=== PATIENT | female | born 1985 | race Caucasian/White ===

== ENCOUNTER 2018-07-30 14:08 | Inpatient (IN) | payer OTHER ==
[~2018-07-30] VITALS: Ht 152.4 cm; Wt 81.4 kg
[~2018-07-30 14:08] MED LIST: DID NOT BRING MEDS
[2018-07-30 14:18] VITALS: Ht 152.4 cm; Wt 81.4 kg
[2018-07-30 14:19] VITALS: BP 103/65; PULSE 85; RESP 18
[2018-07-30] MEDS ORDERED: PNV11TAB PO (14:21)
[2018-07-30] MEDS: LACTATED RINGER'S 1,000 ML IV SCH ×2 (14:54→23:00)
--- NOTE | 2018-07-30 16:52 | HP ---
Date/Time of Note Date/Time of Note DATE: 07/30/18 TIME: 16:48 OB - History Hx of Present Free Text/Dictation @34+wks GA with elevated liver enzymes ,Decreased movements and suspected cholestasis of : 3 Para: 2 Care: Good Care Ultrasounds: Normal mid trimester US Obstetrical Complications: None Medical Complications: None Past Family/Social History * Past Medical, Surgical, Family and Obstetric Histories reviewed from chart. OB Admission Exam Vital Signs Vital Signs Vital Signs Date Temp Pulse Resp B/P (MAP) Pulse Ox O2 O2 Flow FiO2 Time Delivery Rate 07/30/18 98.0 85 18 103/65 14:19 (78) Physical Exam Abdomen: WNL Extremities: Normal Cervical Dilatation: None Effacement: 0% Station: Ballotable Heart Rate: 140's Accelerations: Accelerations Present Decelerations: No Decelerations Varibility: Marked Contractions on Admission: >10 Minutes Apart Last 72 hours Lab Results CBC & BMP 07/30/18 14:52 Liver Function Test 07/30/18 14:52 Alanine Aminotransferase (ALT/SGPT) 121 H Albumin 3.4 Alkaline Phosphatase 187 H Aspartate Amino Transf (AST/SGOT) 95 H Direct Bilirubin 0.00 Total Protein 7.0 OB Assessment/Plan Reason for admission: observation Other Assessment: PMH Denies PSH Denies Plan: Expectant Management Other plan: 1.Perinatology consult 2.Observation 3.Repeat Labs tomorrow 4.Management as per her provider ROBERTO CARLOS FLAHERTY M.D. Jul 30, 2018 16:52
[2018-07-31] MEDS: URSODIOL 300 MG CAP PO SCH ×4 (01:06→22:25)
[2018-07-31] MEDS: LACTATED RINGER'S 1,000 ML IV SCH ×2 (07:39→15:57)
[2018-07-31] MEDS: PRENATAL VITAMIN PO SCH (09:04)
[2018-07-31] MEDS ORDERED: AMPICILLIN 2 GM/NS (PMX) 100 ML IVPB ONE ×2 (19:00→21:00)
--- NOTE | 2018-07-31 19:12 | QN ---
Documentation Comment progress note patient was seen and examined patient report her itching has improved since admission positive movement vs stable afebrile ab gravid nt extremity no edema no calf tenderness ve 1/50/-3 (positive cervical change) fhr cat 1 toco regular a/ iup at 34 wks ga, suspected cholestasis of , ptl was treated for syphillis in the current currently rpr 1:2 p transfer patient to labor and delivery gbs prophylaxis steriod treatment nicu consult perinatalogy consult SEDRICK FLOWERS MD Jul 31, 2018 19:12
--- NOTE | 2018-07-31 19:29 | CONS ---
DATE OF ADMISSION: 07/30/2018 DATE OF CONSULTATION: 07/31/2018 The patient is currently 34 weeks and 2 days, presented for evaluation for cholestasis. BARD panel h as been ordered; they are pending, and liver function tests; the report is that they are slightly chavez vated. She is currently on Actigall every 8 hours. My recommendations are that Actigall 300 mg every 8 hours should be continued. Also, antipyretic age nts if needed should be prescribed. Continuous monitoring while the patient is here. Cholesta sis does not necessitate in-house management. However, the patient is having every 7 to 8 minutes co ntractions. Please re-evaluate the patient for labor and if necessary, meaning if she is dil ated, then I would recommend magnesium sulfate. If she is not dilated and cervical length is appropr iate, then at least magnesium sulfate would be helpful. If further questions, please contact me. In the absence of evidence of labor, the patient can be discharged home with testin g twice weekly with delivery at 37 weeks. However, if the LFTs continued to elevate, then 36 weeks d elivery can be considered. Weekly liver function tests are recommended. Dictated By: JASON RASHID MD ST/ANTWAN Conf#: [id number] DID#: [id number] CC: JUAN F VILLARREAL MD; SEDRICK FLOWERS MD;*End*
[2018-07-31] MEDS: BETAMET NA PHOS/AC(6 MG/ML) 2 ML INJ SYG IM SCH (20:27)
[2018-08-01] MEDS: LACTATED RINGER'S 1,000 ML IV SCH ×3 (01:06→18:19)
[2018-08-01] MEDS: AMPICILLIN 1 GM/NS (PMX) 50 ML IVPB SCH ×2 (01:06→05:03)
[2018-08-01] MEDS: URSODIOL 300 MG CAP PO SCH ×3 (06:07→21:00)
[2018-08-01] MEDS: PRENATAL VITAMIN PO SCH (09:06)
--- NOTE | 2018-08-01 20:18 | QN ---
Documentation Comment progress note patient was seen and examined patient has no itching positive movement vs stable afebrile ab gravid nt extremity no edema no calf tenderness ve 1/50/-3 (no cervical change) fhr cat 1 toco occasional a/ iup at 34 wks ga, suspected cholestasis of , tptl was treated for syphillis in the current currently rpr 1:2 p discharge home today f/u with primary ob tomorrow nst/bpp 2x weekly SEDRICK FLOWERS MD Aug 01, 2018 20:18
--- NOTE | 2018-08-01 20:22 | PD.PPDC ---
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
[2018-08-01] MEDS: BETAMET NA PHOS/AC(6 MG/ML) 2 ML INJ SYG IM SCH (21:01)
--- NOTE | 2018-08-02 01:47 | DS ---
DATE OF ADMISSION: 07/30/2018 DATE OF DISCHARGE: 08/01/2018 PRIMARY DIAGNOSIS: Intrauterine at 34 weeks gestational age with elevated liver enzymes, suspected cholestasis of . Threatened pre-term labor with a history of syphilis and treated in the present , undelivered. PROCEDURE: None. CONDITION ON DISCHARGE: Stable. ACTIVITY: As tolerated. DIET: Regular. MEDICATIONS ON DISCHARGE: Actigall 300 mg p.o. t.i.d. DISCHARGE SUMMARY: Ms. Carmelita Trotter was admitted on 07/30/2018 secondary to complaining of generalized itching. Her liver enzymes were observed to be elevated. She was given Actigall for suspected cholestasis of and given steroid treatment for lung maturity. She had a history of syphilis in the present , which are RPR and is currently 1; 2. The patient reports she was treated already in the present . She will be discharged home today and follow up in [facility] clinic twice weekly, followed by weekly liver enzyme test. Bile acids are currently pending, she will follow up in the clinic with her primary OB and further evaluation and treatment as recommended by her primary OB. Dictated By: SEDRICK JAVIER/ANTWAN Conf#: [id number] DID#: [id number] MTDCiera
== END 2018-08-01 22:00 | disposition home or self-care (01) | DRG 831 ==
LOC: OBT 14:08 → L-D 14:08 → OBT 16:30 → PP1 07-31 00:39 → L-D 07-31 23:53
PROVIDERS: ADMIT Obstetrics & Gynecology; ATTEND Obstetrics & Gynecology
DX: O26.613 Liver and biliary tract disorders in pregnancy, third trimester (principal); K83.1 Obstruction of bile duct; O36.8130 Decreased fetal movements, third trimester, not applicable or unspecified; Z3A.34 34 weeks gestation of pregnancy
CPT/HCPCS: 76818; 80053; 81003; 83789; 84560; 85025; 85384; 85610; 85730; 86592; 86703; 86803; 87081; G0463; J0290; J0702; J7120

== ENCOUNTER 2018-08-07 12:07 | Inpatient (IN) | payer OTHER ==
[~2018-08-07] VITALS: Ht 154.9 cm; Wt 82.6 kg
[~2018-08-07 12:07] MED LIST changes: -DID NOT BRING MEDS; +PNV11TAB PO
[2018-08-07] MEDS ORDERED: LACTATED RINGER'S 1,000 ML IV PRN (12:26)
[2018-08-07] MEDS ORDERED: IBUPROFEN 600 MG TAB PO PRN (12:30)
[2018-08-07] MEDS ORDERED: CARBOPROST 250 MCG INJ IM PRN (12:30)
[2018-08-07] MEDS ORDERED: OXYTOCIN 30 UNITS/LR 500 ML IV PRN (12:30)
[2018-08-07] MEDS ORDERED: METHYLERGONOVINE 0.2 MG INJ IM PRN (12:30)
[2018-08-07] MEDS ORDERED: BUTORPHANOL 2 MG INJ IV PRN ×2 (12:30)
[2018-08-07] MEDS ORDERED: MISOPROSTOL 200 MCG TAB PR PRN (12:30)
[2018-08-07] MEDS ORDERED: LIDOCAINE 1% (MPF) 30 ML INJ INJ PRN (12:30)
[2018-08-07] MEDS ORDERED: OXYTOCIN 30 UNITS/LR 500 ML IV SCH ×2 (12:30)
[2018-08-07 12:31] VITALS: Ht 154.9 cm; Wt 82.6 kg
[2018-08-07 13:13] VITALS: BP 104/62; PULSE 93; RESP 20
[2018-08-07] MEDS: LACTATED RINGER'S 1,000 ML IV SCH ×2 (13:22→20:02)
[2018-08-07] MEDS: MISOPROSTOL 50 MCG CAPSULE PO SCH ×2 (14:25→20:05)
--- NOTE | 2018-08-07 18:45 | PREOPHP ---
DATE OF ADMISSION: 08/07/2018 HISTORY OF PRESENT ILLNESS: Ms. Carmelita Trotter is a 32-year-old 3, para 2, EDC 08/26/2018 intr auterine at 37 weeks and 2 days gestational age, was sent from Dr. Manuel's office for d elivery secondary to cholestasis of with bile acid of approximately 18. She has a signific ant history of syphilis in the present and gonorrhea, which was both treated with antibioti cs. Her current RPR titer is 1:2. She is currently on the Cytotec regimen for cervical ripening. O rders have been given for Pitocin when the Cytotec regimen is complete. She currently denies any con tractions, vaginal bleeding, or discharge. Her care took place with Dr. Manuel. PAST MEDICAL HISTORY: Cholestasis of . MEDICATIONS: 1. vitamins. 2. Actigall. PAST SURGICAL HISTORY: None. OBSTETRICAL HISTORY: x2 vaginal delivery. GYNECOLOGIC HISTORY: 12, regular 3 to 4 days. Denies any sexually transmitted disease. Sexually ac tive with 1 partner. SOCIAL HISTORY: Denies any smoking, drugs or alcohol. FAMILY HISTORY: None. REVIEW OF SYSTEMS: All within normal except history of present illness. PHYSICAL EXAMINATION: HEENT: Within normal. LUNGS: CTA bilateral. CARDIOVASCULAR: S1, S2, regular rhythm. ABDOMEN: Gravid, nontender. Negative CVA bilateral. EXTREMITIES: Negative. No calf tenderness. PELVIC: Vaginal exam: Fingertip short and closed. heart tracing category 1. Tocometer irreg ular contractions. ASSESSMENT: Intrauterine at 37 weeks and 2 days gestational age with cholestasis of pregna ncy, exposure to syphilis and gonorrhea in the current , which was treated. PLAN: Continue present management and pain medications as needed. Dictated By: SEDRICK JAVIER/ANTWAN Conf#: [id number] DID#: [id number]
[2018-08-08 00:30] VITALS: BP 105/65; PULSE 66; RESP 18
[2018-08-08] MEDS: MISOPROSTOL 50 MCG CAPSULE PO SCH (00:30)
[2018-08-08] MEDS: LACTATED RINGER'S 1,000 ML IV SCH ×2 (04:09→07:12)
--- NOTE | 2018-08-08 07:11 | PREAC ---
Date/Time of Note Date/Time of Note DATE: 08/08/18 TIME: 07:10 Anesthesia Eval and Record Evaluation Time Pre-Procedure Interview DATE: 08/08/18 TIME: 07:10 Age 32 Sex female NPO: 8 hrs Preoperative diagnosis Labor Pain Planned procedure Labor Epidural Past Medical History Past Medical History: Includes Heme: Anemia Infection(s): Other (Treated for Gonorrhea and Syphylis) : : (3), Para: (1), Gestational age: (37) Surgery & Anesthesia Issues No known issue Meds Anticoagulation: No Beta Humphrey within 24 hr: No Reason Beta Humphrey not given: Pt. not on B-Humphrey Reported Medications [id number] Tfnyxwze-EQ-SYP ( 19) 1 Each Tablet, 1 TAB PO DAILY, TAB 07/30/18 Discontinued Reported Medications [Did Not Bring Meds] No Conflict Check 09/02/10 Current Medications Lactated Ringer's 1,000 ml @ 125 mls/hr Q8H IV Last administered on 08/08/18at 04:09; Admin Dose 125 MLS/HR; Start 08/07/18 at 12:26 Butorphanol Tartrate (Stadol) 1 mg Q2H PRN IV .PAIN SCALE 1-5; Start 08/07/18 at 12:30 Butorphanol Tartrate (Stadol) 2 mg Q2H PRN IV .PAIN SCALE 6-10 Last administered on 08/08/18at 07:00; Admin Dose 2 MG; Start 08/07/18 at 12:30 Lidocaine (Xylocaine 1% (Mpf)) 30 ml ONCE PRN INJ .EPISIOTOMY; Start 08/07/18 at 12:30 Oxytocin/Lactated Ringer's 500 ml @ 500 mls/hr ONCE POST IV ; Start 08/07/18 at 12:30 Oxytocin/Lactated Ringer's 500 ml @ 125 mls/hr POST IV ; Start 08/07/18 at 12:30 Ibuprofen (Motrin) 600 mg ONCE PRN PO .PAIN 1-5; Start 08/07/18 at 12:30 Lactated Ringer's 1,000 ml @ 2,000 mls/hr Q30M PRN IV .ANESTHESIA; Start 08/07/18 at 12:26 Oxytocin/Lactated Ringer's 500 ml @ 0 mls/hr ONCE PRN IV .VAGINAL BLEEDING; Start 08/07/18 at 12:30 Methylergonovine Maleate (Methergine) 0.2 mg ONCE PRN IM .VAGINAL BLEEDING; Start 08/07/18 at 12:30 Carboprost Tromethamine (Hemabate) 250 mcg ONCE PRN IM .VAGINAL BLEEDING; Start 08/07/18 at 12:30 Misoprostol (Cytotec) 1,000 mcg ONCE PRN AL .VAGINAL BLEEDING; Start 08/07/18 at 12:30 Misoprostol (Cytotec 50 Mcg Capsule) 50 mcg Q4 PO Last administered on 08/08/18at 00:30; Admin Dose 50 MCG; Start 08/07/18 at 14:10 Meds reviewed: Yes Allergies Coded Allergies: No Known Drug Allergy (Verified Allergy, Unknown, 12/12/13) Allergies Reviewed: Yes Labs/Studies Labs Reviewed: Reviewed by anesthesiologist Result Diagram: 08/07/18 1320 08/07/18 1320 Laboratory Tests 08/07/18 13:20 Blood Bank Test 08/07/18 13:20 Antibody Screen NEGATIVE Blood Type O POSITIVE Rh Immune Globulin Candidate NO test: Positive Studies: ECG (n/a), CXR (n/a) Pre-procedure Exam Last vitals Vital Signs Date Temp Pulse Resp B/P (MAP) Pulse Ox O2 O2 Flow FiO2 Time Delivery Rate 08/07/18 98.4 93 20 104/62 Room Air 13:13 (76) Airway: Adequate mouth opening, Adequate thyromental dist Mallampati: Mallampati II Teeth: Normal Lung: Normal Heart: Normal ASA Physical Status ASA physical status: 2 Emergency: None Planned Anesthetic Neuraxial: Epidural Planned Pain Management Epidural Pre-operative Attestations Prior to commencing anesthesia and surgery, the patient was re-evaluated, there was verification of: *The patient's identity *The results of appropriate recent lab work and preoperative vital signs *The above evaluation not changing prior to induction *Anesthetic plan, risk benefits, alternative and complications discussed with patient/family; questions answered; patient/family understands, accepts and wishes to proceed. YRN TY MD Aug 08, 2018 07:11
[2018-08-08] MEDS ORDERED: FENTAnyl 2MCG/ML-ROPIV 0.2% 100 ML ONE (07:28)
--- NOTE | 2018-08-08 07:38 | PAC ---
Date/Time of Note Date/Time of Note DATE: 08/08/18 TIME: 07:38 Post-Anesthesia Notes Post-Anesthesia Note Last documented vital signs Vital Signs Date Temp Pulse Resp B/P (MAP) Pulse Ox O2 O2 Flow FiO2 Time Delivery Rate 08/08/18 98.4 93 20 104/62 Room Air 07:33 (76) Activity: WNL Respiratory function: WNL Cardiovascular function: WNL Mental status: Baseline Pain reasonably controlled: Yes Hydration appropriate: Yes Nausea/Vomiting absent: Yes YRN TY MD Aug 08, 2018 07:38
[2018-08-08] MEDS ORDERED: NALOXONE (0.4 MG/ML) INJ IV PRN (08:00)
[2018-08-08] MEDS ORDERED: FENTAnyl 2MCG/ML-ROPIV 0.2% 100 ML BAG EPI SCH (08:00)
[2018-08-08] MEDS ORDERED: OXYTOCIN 30 UNITS/LR 500 ML IV SCH (09:35)
--- NOTE | 2018-08-08 09:35 | LDN ---
Date/Time of Note Date/Time of Note DATE: 08/08/18 TIME: 09:34 Delivery Summary iup at 37 wks with cholestasis of Weeks of Gestation 37 Placenta Delivered: Spontaneously Meconium: none Episiotomy: No Estimated blood loss: 150 Sponge & Needle done & correct: Yes All needle counts correct: Yes Any foreign bodies felt in the: No Delivery Information Sex Infant Sex: male Apgars 1 Minute: 9 5 Minute: 9 Suctioning Nose & mouth suctioned at vianey: No Delee suction performed: No Umbilical Cord Umbilical cord with: 3 Vessels Cord presentations: no nuchal cord Cord Blood was obtained: Yes SEDRICK FLOWERS MD Aug 08, 2018 09:35
[2018-08-08] MEDS ORDERED: WITCH HAZEL/GLYCERIN PAD PR PRN (10:00)
[2018-08-08] MEDS ORDERED: OXYCODONE/ASPIRIN (4.88/325) TAB PO PRN ×2 (10:00)
[2018-08-08] MEDS ORDERED: ACETAMINOPHEN 325 MG TAB PO PRN (10:00)
[2018-08-08] MEDS ORDERED: ONDANSETRON 4 MG INJ IV PRN (10:00)
[2018-08-08] MEDS ORDERED: MISOPROSTOL 200 MCG TAB PR PRN (10:00)
[2018-08-08] MEDS ORDERED: CARBOPROST 250 MCG INJ IM PRN (10:00)
[2018-08-08] MEDS ORDERED: LANOLIN HPA 1 PKT TOP PRN (10:00)
[2018-08-08] MEDS ORDERED: OXYTOCIN 30 UNITS/LR 500 ML IV PRN (10:00)
[2018-08-08] MEDS ORDERED: NACL 0.9% 3 ML SYG IV SCH (10:00)
[2018-08-08] MEDS ORDERED: METHYLERGONOVINE 0.2 MG INJ IM PRN (10:00)
[2018-08-08 11:00] VITALS: BP 110/63; PULSE 58; RESP 16
[2018-08-08] MEDS: IBUPROFEN 600 MG TAB PO SCH ×2 (11:47→17:52)
[2018-08-08 16:45] VITALS: BP 104/58; PULSE 61; RESP 16
[2018-08-08 20:05] VITALS: BP 107/64; PULSE 65; RESP 18
[2018-08-09 00:25] VITALS: BP 105/64; PULSE 66; RESP 18
[2018-08-09 04:25] VITALS: BP 107/67; PULSE 60; RESP 18
[2018-08-09] MEDS: IBUPROFEN 600 MG TAB PO SCH ×4 (06:00→17:52)
[2018-08-09 08:30] VITALS: BP 99/56; PULSE 61; RESP 14
[2018-08-09 16:06] VITALS: BP 108/69; PULSE 61; RESP 16
--- NOTE | 2018-08-09 16:34 | QN ---
Documentation Comment had B.M no c/o VSS afebrile fundus firm lochia min calf neg for tenderness A s/p #1 P discharge home in am CARLOS EDUARDO MARIEE MD Aug 09, 2018 16:34
[2018-08-09 20:30] VITALS: BP 110/68; PULSE 54; RESP 18
[2018-08-10] MEDS: IBUPROFEN 600 MG TAB PO SCH ×4 (00:32→18:18)
[2018-08-10 04:43] VITALS: BP 106/61; PULSE 64; RESP 17
[2018-08-10 08:00] VITALS: BP 108/58; PULSE 80; RESP 18
--- NOTE | 2018-08-10 13:09 | PN ---
Date/Time of Note Date/Time of Note DATE: 08/10/18 TIME: 13:04 OB Subjective Subjective Subjective Patient denies any complaints. Breast-feeding. Decreased vaginal bleeding. Patient claims that she had been treated in clinic for syphilis and had been followed up. She reports her partner is currently in assisted and had been treated as well. Records from clinic reviewed and she had labs drawn only in January. No repeated STD labs was done since then. Past history also significant for syphilis and chlamydia. Patient claims that have been treated. She denies any symptoms. Baby is in NICU. Patient pumping her breast. OB Objective Objective Objective General appearance: Alert and oriented x4 does not appear to be in any acute distress Abdomen: Soft, gravid fundus firm palpable below the umbilicus and nontender Breast: No evidence of mastitis or fissure Extremities: No calf tenderness, no click no edema no cord palpable CBC & BMP 08/07/18 13:20 08/09/18 07:53 Liver Function Test 08/07/18 13:20 Alanine Aminotransferase (ALT/SGPT) 60 Albumin 3.6 Alkaline Phosphatase 152 H Aspartate Amino Transf (AST/SGOT) 31 Direct Bilirubin 0.00 Total Protein 7.0 VS - Last 72 Hours, by Label Date Temp Pulse Resp B/P (MAP) Pulse Ox O2 O2 Flow FiO2 Time Delivery Rate 08/10/18 97.7 80 18 108/58 Room Air 08:00 (75) 08/10/18 97.8 64 17 106/61 Room Air 04:43 (76) 08/09/18 98.1 54 18 110/68 Room Air 20:30 (82) 08/09/18 98.3 61 16 108/69 Room Air 16:06 (82) 08/09/18 98.0 61 14 99/56 (70) Room Air 08:30 08/09/18 98.2 60 18 107/67 Room Air 04:25 (80) 08/09/18 98.0 66 18 105/64 Room Air 00:25 (78) 08/08/18 98.2 65 18 107/64 Room Air 20:05 (78) 08/08/18 98.2 61 16 104/58 Room Air 16:45 (73) 08/08/18 98.1 58 16 110/63 Room Air 11:00 (79) 08/08/18 98.0 66 18 105/65 Room Air 00:30 (78) 08/07/18 98.4 93 20 104/62 Room Air 13:13 (76) OB Assessment/Plan Other Assessment: day #2 Status post Mild anemia, , asymptomatic History of syphilis, status post treatment in clinic. Recent RPR titer 1.2 History of chlamydia, patient claimed that had been treated. Currently asymptomatic. Partner is currently in assisted. Patient reports that her partner as well had been treated. She denies having any sexual contact with any other partner. Labs reviewed from the clinic. No records of repeat STD testing since January was seen. HIV 1 and 2 as well as hepatitis C and gonorrhea chlamydia requested Consult with ID for recommendation for follow-up prior to discharge from the hospital Consulted Dr. Gaxiola. Pending discharge after clearance by KELLIE VALDEZ MD Aug 10, 2018 13:09
[2018-08-10 16:00] VITALS: BP 108/59; PULSE 58; RESP 20
--- NOTE | 2018-08-10 17:33 | PD.PPDC ---
CAMPUS RECEPTIONIST Discharge Instruction Condition Ixyoo7Io Patient Condition: Ktzfl9i Good Diet Imnhf6Rb Diet: Fnsbc6e Resume Regular Diet Activity/Restrictions Cnyyn5Zi Activity: Pmzfz7z Normal Activity May be up to bathroom May be up for meals May Shower Gynza1Oa Restrictions: Gpxxj9m Nothing in the Vagina No [place] No Tampons, douche Follow-up Follow-up with Physician: 3, Day/Days Provider Information: Follow-up in 3 days with primary OB office for follow-up of positive RPR. Titer in the hospital is 1-2. Which appears to be dropped compared to original level in the clinic. I discussed this case with Dr. 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
[2018-08-10] MEDS ORDERED: IBUP-1542 PO (17:34)
[2018-08-10] MEDS ORDERED: Lanolin Hpa TOP (17:34)
[2018-08-10] MEDS ORDERED: TUCKS PR (17:34)
--- NOTE | 2018-08-10 17:35 | DS ---
Date/Time of Note Date/Time of Note DATE: 08/10/18 TIME: 17:34 Discharge Summary Admission/Discharge Info Admit Date/Time Aug 07, 2018 at 12:07 Discharge Date/Time August 10, 2018 Patient Condition: Good Consults ID nonofficial consult. Phone consultation Procedures Induction, Hx of Present Illness Ms. Carmelita Trotter is a 32-year-old 3, para 2, EDC 08/26/2018 intrauterine at 37 weeks and 2 days gestational age, was sent from Dr. Manuel's office for delivery secondary to cholestasis of with bile acid of approximately 18. She has a significant history of syphilis in the present and gonorrhea, which was both treated with antibiotics. Her current RPR titer is 1:2. She underwent induction of labor with Cytotec. She delivered a viable term baby without any complication. course was otherwise uncomplicated. Her RPR titer was 1-2 that compared to prior level 1-16 showed drop. Patient reported prior treatment with her partner treatment for syphilis in the past. Has also history of gonorrhea status post treatment with the partner treatment. She denies any symptoms currently. I consulted by phone with infectious disease specialist Dr. Gaxiola who agreed that the patient had adequate treatment and can be followed up after discharge from the hospital with primary OB office in 2 to 3 days. NICU aware that the baby's RPR positive. Patient verbalized understanding importance of close follow-up and monitoring with primary OB office for. follow- up of syphilis her HIV labs as well as hepatitis C was repeated prior to discharge home that was negative. Hospital Course Uncomplicated Home Meds Active Scripts [Lanolin Hpa] 1 APPLIC OINT No Conflict Check, 1 APPLIC TOP BEDSIDE MEDICATION PRN for .NIPPLES, #1 2 Refills Prov:KELLIE CALLAWAY MD 08/10/18 Witch Maryam* (Tucks* Pads) 40 Pad Pad, 1 PAD IL BEDSIDE MEDICATION PRN for .HEMORRHOID/EPISIOTOMY PAIN, #1 PAD 2 Refills Prov:KELLIE CALLAWAY MD 08/10/18 Ibuprofen* (Ibuprofen*) 600 Mg Tablet, 600 MG PO Q6, #30 TAB 1 Refill Prov:KELLIE CALLAWAY MD 08/10/18 Reported Medications [id number] Fodsvmdi-UB-VQM ( 19) 1 Each Tablet, 1 TAB PO DAILY, TAB 07/30/18 Follow-up Plan 3 days with primary OB office for follow-up of RPR titer as well as in 6 weeks Primary Care Provider Cleo Jung Time spent on discharge: > 30 minutes Pending Labs Laboratory Tests Test 08/10/18 14:06 Hepatitis C Antibody NEGATIVE (NEGATIVE) HIV (1&2) Antibody NEGATIVE (NEGATIVE) KELLIE CALLAWAY MD Aug 10, 2018 17:35
--- NOTE | 2018-08-11 19:18 | DELSUM ---
Delivery Summary A-C Datetime Report Generated by CPN: 08/11/2018 19:18 DELIVERY PERSONNEL Flotation Operator: Ivone Welch MATERNAL INFORMATION Delivery Anesthesia: Epidural Medications in Delivery: PITOCIN 30 UNITS IN 500 ML L/R INJ Delivery QBL (ml): 150 Placenta Cultured: No Maternal Complications: Other Other Maternal Complications: Cholestatis, treated for Gonorhea and Chlamydia LABOR SUMMARY EDC: 08/26/2018 00:00 No. Babies in Womb: 1 Attempted: No Labor Anesthesia: Epidural LABOR INFORMATION Reason for Induction: Other Reason for Induction- Other: CHOLYSTASIS Onset of Labor: 08/07/2018 12:00 Complete Dilatation: 08/08/2018 08:25 Cervical Ripening Agents: Cytotec @ Oxytocin: N/A Group B Beta Strep: Negative Antibiotics # of Doses: 0 Steroids Given: None Reason Steroids Not Administered: Not Applicable MEMBRANES Membranes Rupture Method: Spontaneous Rupture of Membranes: 08/08/2018 07:40 Length of Rupture (hr): 1.07 Amniotic Fluid Color: Clear Amniotic Fluid Amount: Moderate Amniotic Fluid Odor: None STAGES OF LABOR Stage 1 hr: 20 Stage 1 min: 25 Stage 2 hr: 0 Stage 2 min: 19 Stage 3 hr: 0 Stage 3 min: 3 Total Time in Labor hr: 20 Total Time in Labor min: 47 VAGINAL DELIVERY Episiotomy: None Laceration Extension: N/A Laceration Type: None Laceration Repair: Not Applicable Initial Vag Sponge Count: 10 Final Vag Sponge Count: 10 Initial Vag Sharps Count: 1 Final Vag Sharps Count: 1 Sponge Count Correct: Yes; Vaginal Sweep Performed Sharps Count Correct: Yes BABY A INFORMATION Delivery Date/Time: 08/08/2018 08:44 Method of Delivery: Vaginal Born in Route : No : N/A Forceps: N/A Vacuum Extraction: N/A Shoulder Dystocia : N/A SHOULDER DYSTOCIA BABY A Delivery Date/Time: 08/08/2018 08:44 PRESENTATION/POSITION BABY A Presentation: Cephalic Cephalic Presentation: Vertex Breech Presentation: N/A PLACENTA INFORMATION BABY A Placenta Delivery Time : 08/08/2018 08:47 Placenta Method of Delivery: Expressed Placenta Status: Delivered SCORES BABY A Heart Rate 1 min: >100 bpm Resp Effort 1 min: Good Cry Reflex Irritability 1 min: Cough/Sneeze/Pulls Away Muscle Tone 1 min: Active Motion Color 1 min: Body [place], Extremit Blue Resuscitation Effort 1 min: Tactile Stimulation SCORE 1 MIN: 9 Heart Rate 5 min: >100 bpm Resp Effort 5 min: Good Cry Reflex Irritability 5 min: Cough/Sneeze/Pulls Away Muscle Tone 5 min: Active Motion Color 5 min: Body [place], Extremit Blue Resuscitation Effort 5 min: Tactile Stimulation SCORE 5 MIN: 9 INFANT INFORMATION BABY A Gestational Age at Delivery: 37.3 Gestational Status: Early Term- 37- 38.6 Weeks Outcome : Liveborn Condition : Stable Infant Sex: Male IDENTIFICATION/MEDS BABY A ID Band Number: [id number] ID Band Location: Right Leg; Left Arm Sensor Applied: Yes Sensor Number: [id number] Sensor Location : Cord Clamp Vitamin K Given : Not Given Erythromycin Given: Not Given WEIGHT/LENGTH BABY A Infant Birthweight (gm): 3020 Weight (lb): 6 Infant Weight (oz): 11 Infant Length (in): 19.25 Infant Length (cm): 48.90 CORD INFORMATION BABY A No. Cord Vessels: 3 Nuchal Cord : N/A Cord Blood Taken: Yes Infant Suction: Mouth; Nose ASSESSMENT BABY A Infant Complications: None Physical Findings at Delivery: Within Normal Limits Infant Respirations: Appears Normal Project Controls Scheduler/ALS Called : No Infant Care By: Idalia SUÁREZ Transferred To: Remains with Mother
== END 2018-08-10 19:05 | disposition home or self-care (01) | DRG 805 ==
LOC: L-D 12:07 → PP1 08-08 10:55
PROVIDERS: ADMIT Obstetrics & Gynecology; ATTEND Obstetrics & Gynecology
PROC: 10E0XZZ Delivery of Products of Conception, External Approach (ICD-10-PCS; principal; 2018-08-08)
DX: O26.62 Liver and biliary tract disorders in childbirth (principal); K83.1 Obstruction of bile duct; Z37.0 Single live birth; O90.81 Anemia of the puerperium; D64.9 Anemia, unspecified; Z3A.37 37 weeks gestation of pregnancy; Z86.19 Personal history of other infectious and parasitic diseases
CPT/HCPCS: 62322; 76815; 80053; 85025; 85610; 85730; 86592; 86703; 86803; 86850; 86900; 86901; 87340; 87536; 99464; J0595; J2590; J3010; J7120